=== PATIENT | female | born 1955 | race Caucasian/White ===

== ENCOUNTER 2023-08-17 07:52 | Emergency (ER) | payer OTHER, MEDICAID ==
[~2023-08-17] VITALS: Ht 162.6 cm; Wt 108.9 kg
[2023-08-17 08:01] VITALS: BP 148/78; TEMP 98.7
[2023-08-17] MEDS ORDERED: KETOROLAC TROMETHAMINE INJ 30 MG/ML VIAL ONE (08:30)
[2023-08-17] MEDS: KETOROLAC TROMETHAMINE INJ 60 MG/2 ML VIAL IM ONE (08:36)
[2023-08-17 08:56] VITALS: O2SAT 100
== END 2023-08-17 08:57 | disposition home or self-care (01) ==
LOC: ER 07:57
DX: M25.562 Pain in left knee (principal); I10 Essential (primary) hypertension; M19.90 Unspecified osteoarthritis, unspecified site; Z86.73 Personal history of transient ischemic attack (TIA), and cerebral infarction without residual deficits; Z88.2 Allergy status to sulfonamides
CPT/HCPCS: 99283; 96372; J1885

== ENCOUNTER 2024-07-13 10:13 | Emergency (ER) | payer OTHER, MEDICAID ==
[~2024-07-13] VITALS: Ht 162.6 cm; Wt 108.9 kg
[2024-07-13] MEDS ORDERED: HYDROCODONE/APAP 5/325MG TABLET ONE (11:02)
[2024-07-13] MEDS: HYDROCODONE/APAP 5/325MG TABLET PO ONE (11:07)
[2024-07-13 12:00] VITALS: BP 146/88; TEMP 97.9; O2SAT 98
== END 2024-07-13 12:02 | disposition home or self-care (01) ==
LOC: ER 10:23
DX: M17.12 Unilateral primary osteoarthritis, left knee (principal); R60.0 Localized edema; I25.2 Old myocardial infarction; Z86.73 Personal history of transient ischemic attack (TIA), and cerebral infarction without residual deficits; Z88.2 Allergy status to sulfonamides
CPT/HCPCS: 93971-TC